=== PATIENT | male | born 1995 | race Caucasian/White ===

== ENCOUNTER 2019-04-18 21:21 | Emergency (ER) | payer SELFPAY ==
[2019-04-18] MEDS: Propranolol 20 MG Tab PO ONE (21:38)
--- NOTE | 2019-04-18 22:01 | EDM.PDOC ---
ED HPI GENERAL MEDICAL PROBLEM - General Chief Complaint: General Stated Complaint: ANXIETY Time Seen by Provider: 04/18/19 21:25 Source of Information: Reports: Patient History Limitations: Reports: No Limitations - History of Present Illness INITIAL COMMENTS - FREE TEXT/NARRATIVE: Pt walked into emergency room claiming that he is having anxiety attack. He claims he has been having racing heat and feels short of breath. It started just prior to arrival. He drank 2 cans of beer and started smoking pot, and started to feel anxious and his heart started to race . No chest pain, chest tightness. No cold calmly hands. No nausea or vomiting.No other complaints. Pt claims he had similar episode when he smoked pot previously. Onset: Today Onset Date: 04/18/19 Onset Time: 21:00 Location: Reports: Generalized Severity: Mild Improves with: Reports: None Worsens with: Reports: None Associated Symptoms: Denies: Confusion, Chest Pain, Cough, Diaphoresis, Fever/ Chills, Headaches, Nausea/Vomiting, Rash, Seizure, Shortness of Breath, Syncope , Weakness - Related Data Allergies Allergy/AdvReac Type Severity Reaction Status Date / Time No Known Allergies Allergy Verified 04/18/19 21:22 Home Meds: Home Meds NK [No Known Home Meds] 04/18/19 [History] ED ROS GENERAL - Review of Systems Review Of Systems: See Below Constitutional: Denies: Fever, Chills, Weakness, Fatigue, Diaphoresis HEENT: Denies: Rhinitis, Throat Pain Respiratory: Denies: Shortness of Breath, Pleuritic Chest Pain, Cough, Sputum Cardiovascular: Reports: Palpitations. Denies: Chest Pain, Lightheadedness GI/Abdominal: Reports: Flatus. Denies: Abdominal Pain, Constipation, Diarrhea, Nausea, Vomiting : Denies: Dysuria, Frequency Musculoskeletal: Denies: Joint Pain, Joint Swelling Skin: Denies: Bruising, Pruritis, Rash Neurological: Denies: Confusion, Dizziness, Headache, Numbness, Tingling Psychiatric: Reports: Anxiety. Denies: Agitation, Confusion, Cravings, Depression ED EXAM, GENERAL - Physical Exam Exam: See Below Exam Limited By: No Limitations General Appearance: Alert, WD/WN, Anxious Eye Exam: Bilateral Eye: EOMI, PERRL Ears: Normal External Exam, Normal Canal, Hearing Grossly Normal, Normal TMs Ear Exam: Bilateral Ear: Auricle Normal, Canal Normal, TM normal Nose: Normal Inspection, Normal Mucosa, No Blood Throat/Mouth: Normal Inspection, Normal Lips, Normal Teeth, Normal Gums, Normal Oropharynx, Normal Voice, No Airway Compromise Head: Atraumatic, Normocephalic Neck: Normal Inspection, Supple, Non-Tender, Full Range of Motion Respiratory/Chest: No Respiratory Distress, Lungs Clear, Normal Breath Sounds, No Accessory Muscle Use, Chest Non-Tender Cardiovascular: Normal Peripheral Pulses, Regular Rate, Rhythm, No Edema, No Gallop, No JVD, No Murmur, No Rub GI/Abdominal: Normal Bowel Sounds, Soft, Non-Tender, No Organomegaly, No Distention, No Abnormal Bruit, No Mass Extremities: Normal Inspection, Normal Range of Motion, Non-Tender, Normal Capillary Refill, No Pedal Edema Neurological: Alert, Oriented, CN II-XII Intact, Normal Cognition, Normal Gait, Normal Reflexes, No Motor/Sensory Deficits Psychiatric: Normal Affect, Anxious Course - Vital Signs Text/Narrative:: Pt claims he drank 2 beer and smoked marijuana and started to feel racing heart. His main concerns is his heart racing. Has not other symptoms. has similar episodes when he previously smoked marijuana. His vitals are stable other then his heart rate is in 120s. As his main concern is heart rate, he did recieve propranolol 20mg orally. his heart rate did drop into 100s. He started to feel better. Pt reassured. I have advised patient to stop using marijuana as it can trigger anxiety attacks. Also combination of drinking and marijuana is not good, as they both or addictive. Pt understands and agrees with the plan. Last Recorded V/S: Last Vital Signs Temp 96.5 F 04/18/19 21:28 Pulse 113 H 04/18/19 21:58 Resp 20 04/18/19 21:58 BP 150/73 H 04/18/19 21:28 Pulse Ox 99 04/18/19 21:58 - Orders/Labs/Meds Meds: Medications Discontinued Medications Generic Name Dose Route Start Last Admin Trade Name Godwin PRN Reason Stop Dose Admin Propranolol HCl 20 mg 04/18/19 21:35 04/18/19 21:38 Inderal PO 04/18/19 21:36 20 mg ONETIME ONE Administration Departure - Departure Time of Disposition: 22:45 Disposition: Home, Self-Care 01 Condition: Fair Clinical Impression: Anxiety - Discharge Information *PRESCRIPTION DRUG MONITORING PROGRAM REVIEWED*: Not Applicable *COPY OF PRESCRIPTION DRUG MONITORING REPORT IN PATIENT RED: Not Applicable Instructions: Panic Attack, [id number] Referrals: PCP,None [Primary Care Provider] - Forms: ED Department Discharge Additional Instructions: Avoid marijuana and alcohol use as they both increase anxiety. Drink plenty of fluids and get plenty of rest. Diet and activity as tolerated. Follow up as needed. Call with any questions. - Problem List & Annotations (1) Anxiety SNOMED Code(s): 49930897 Code(s): F41.9 - ANXIETY DISORDER, UNSPECIFIED Status: Acute - Problem List Review Problem List Initiated/Reviewed/Updated: Yes - Assessment/Plan Assessment:: Anxiety episode Plan: Pt claims he drank 2 beer and smoked marijuana and started to feel racing heart. His main concerns is his heart racing. Has not other symptoms. has similar episodes when he previously smoked marijuana. His vitals are stable other then his heart rate is in 120s. As his main concern is heart rate, he did recieve propranolol 20mg orally. his heart rate did drop into 100s. He started to feel better. Pt reassured. I have advised patient to stop using marijuana as it can trigger anxiety attacks. Also combination of drinking and marijuana is not good, as they both or addictive. Pt understands and agrees with the plan.
[2019-04-18 23:48] VITALS: BP 150/73
[2019-04-18 23:49] VITALS: PULSE 113
== END 2019-04-18 22:04 | disposition home or self-care (01) ==
LOC: LB.ED 21:21
DX: F41.9 Anxiety disorder, unspecified (principal)
CPT/HCPCS: 99282; A9270-GY